=== PATIENT | female | born 1950 ===

== ENCOUNTER 2019-05-20 09:20 | Day surgery (SDC) | payer OTHER ==
[~2019-05-20 09:20] MED LIST: AMILODIPINE PO; ASTELIN IN; BREO ELLIPTA 21 EACH IN; COZAAR100 MG PO; FLONASE SENSIM5.9 ML NASAL; FOSAMAX70 MG PO; KEPPRA500 MG PO; LEXAPRO5 MG PO; SYNTHROID50 MCG PO; ZOCOR20 MG PO
== END 2019-05-20 14:50 | disposition home or self-care (01) ==
LOC: CIR.AMB 09:20
DX: R15.9 Full incontinence of feces (principal)
CPT/HCPCS: 64581; C1778